=== PATIENT | female | born 1935 | race Caucasian/White ===

== ENCOUNTER 2016-05-19 18:10 | Inpatient (IN) | payer OTHER ==
[~2016-05-19] VITALS: Ht 162.6 cm; Wt 75.8 kg
[~2016-05-19 18:10] MED LIST: CALC500C3 PO; IBUP-103 PO
[2016-05-19] MEDS ORDERED: SODIUM CHLORIDE 0.9% 1000ML 1,000 ML IV STA (18:23)
[2016-05-19] MEDS ORDERED: ACETAMINOPHEN 500 MG TAB PO STA (18:23)
[2016-05-19] MEDS ORDERED: BENZONATATE 100MG CAP PO ONE (18:30)
--- NOTE | 2016-05-19 18:50 | DIAGNOSTIC IMAGING REPORT ---
SINGLE VIEW CHEST CLINICAL HISTORY: Cough and fever. Wheezing. FINDINGS: An AP, portable, upright chest radiograph is correlated with chest CT dated 12/02/2009. The examination is degraded by portable technique, apical and out of positioning, and patient rotation. A small hiatal hernia is noted. The heart is enlarged and there is atherosclerotic calcification of the thoracic aorta. The pulmonary vasculature is noncongested. Chronic interstitial thickening is unchanged. There is no airspace consolidation, pleural effusion, or pneumothorax. The skeletal structures are osteopenic. The bony thorax is grossly intact. Cholecystectomy clips are identified in the right upper quadrant. IMPRESSION: Cardiomegaly with no acute cardiopulmonary abnormality. Electronically signed by: Lonny Griffiths M.D. 05/19/2016 6:49 PM Dictated Date/Time: 05/19/2016 6:48 PM
[2016-05-19] MEDS ORDERED: CHLO1TAB47 PO (18:55)
[2016-05-19 19:16] LABS: HEMATOCRIT 38.1 % (37-47); MEAN CELL VOLUME 89.2 fL (80-100); MEAN CORPUSCULAR HEMOGLOBIN 31.9 pg (25-34); MEAN CORPUSCULAR HGB CONC 35.7 g/dl (32-36); MEAN PLATELET VOLUME 10.4 fL (7.4-10.4); PLATELET COUNT 182 K/uL (130-400); RED BLOOD COUNT 4.27 M/uL (4.2-5.4)
[2016-05-19 19:17] LABS: ISTAT CREATININE 0.8 mg/dl (0.6-1.3); ISTAT HEMOGLOBIN 12.9 g/dl (12.0-16.0); ISTAT IONIZED CALCIUM 1.11 mmol/l (1.12-1.32)
[2016-05-19 19:24] LABS: PROTHROMBIN TIME (PATIENT) 10.7 SECONDS (9.0-12.0)
[2016-05-19 19:30] LABS: URINE APPEARANCE CLOUDY (CLEAR); URINE BILIRUBIN NEG (NEG); URINE COLOR YELLOW; URINE EPITHELIAL CELL AUTO 20-30 /lpf (0-5); URINE NITRITE NEG (NEG); URINE PH 8.5 (4.5-7.5); URINE SPECIFIC GRAVITY 1.015 (1.000-1.030); UROBILINOGEN NEG (NEG); ZZUR CULT IF INDIC CLEAN CATCH NO
[2016-05-19 19:32] LABS: MANUAL MICROSCOPIC REQUIRED? NO; REVIEW REQ? YES
[2016-05-19 19:32] LABS: CALCIUM 8.8 mg/dl (8.5-10.1); CREATININE 0.83 mg/dl (0.60-1.20); MAGNESIUM 1.7 mg/dl (1.8-2.4); POTASSIUM 3.4 mmol/L (3.5-5.1)
[2016-05-19 19:44] LABS: CKMB/CK RATIO 2.3 (0-3.0)
[2016-05-19 19:45] LABS: BASO % 0.1 %; BASO ABS # 0.01 K/uL (0-0.2); COMPLETE YES; EOS % 0.1 %; IG% 0.3 %; LYMPH % 8.3 %; LYMPH ABS # 0.78 K/uL (1.2-3.4); MONO % 6.7 %; NEUT % 84.5 %
[2016-05-19] MEDS ORDERED: LEVAQUIN 750MG / 150ML D5W IV STA (19:51)
[2016-05-19] MEDS ORDERED: ASPIRIN 81 MG CHEW PO STA (19:51)
[2016-05-19] MEDS ORDERED: POTASSIUM CHLORIDE 10 MEQ TABCR PO STA (20:11)
[2016-05-19] MEDS ORDERED: ALBUT/IPRATROP 3MG/0.5MG NEB 3 ML VIAL INH STA (20:40)
[2016-05-19] MEDS ORDERED: LORAZEPAM 2 MG/ML 1 ML VIAL IV PRN (20:45)
[2016-05-19] MEDS ORDERED: MAGNESIUM SULFATE 1GM / D5W 1 GM in PREMIXED IN D5W 100 ML IV ONE ×2 (20:45→23:00)
[2016-05-19] MEDS ORDERED: TRAMADOL HCL 50 MG TAB PO PRN (20:45)
[2016-05-19] MEDS ORDERED: BENZONATATE 100MG CAP PO PRN (20:45)
[2016-05-19] MEDS ORDERED: ACETAMINOPHEN 325 MG TAB PO PRN (20:45)
[2016-05-19] MEDS ORDERED: NITROGLYCERIN 0.4 MG SL PER TAB CHARGE SL PRN (20:45)
[2016-05-19] MEDS ORDERED: ALBUT/IPRATROP 3MG/0.5MG NEB 3 ML VIAL INH PRN (20:45)
[2016-05-19] MEDS ORDERED: ONDANSETRON INJ 2 MG/ML 2 ML VIAL IV PRN (20:45)
[2016-05-19] MEDS ORDERED: ENOXAPARIN 40 MG/0.4 ML SYR SC SCH (21:00)
[2016-05-19 21:23] LABS: MAGNESIUM 1.7 mg/dl (1.8-2.4)
--- NOTE | 2016-05-19 21:23 | EMERGENCY ROOM VISIT NOTE ---
History Report prepared by Chaya: Mitali Esquivel Under the Supervision of: Dr. Valentín Crawford D.O. First contact with patient: 18:14 Chief Complaint: COUGH Stated Complaint: COUGH,FEVER,WHEEZING FOR 5 DAYS History of Present Illness The patient is a 80 year old female who presents to the Emergency Room with complaints of a constant cough beginning 2 week ago. The patient's son reports that the patient has an appointment with her doctor on Saturday but today when he went to visit he decided that she needed to come in. The patient complains of pain across her eyes, congestion, runny nose, shortness of breath, fever of 103 today, abdominal pain from coughing, and a productive cough with yellow phlegm. She denies any nausea, vomiting, and urinary symptoms. The patient reports that there are several people in her family that are sick with the same thing. Source of History: patient, family Onset: 2 weeks ago Position: other (global) Quality: other (cough) Timing: constant Associated Symptoms: + SOB, + abdominal pain, + fevers, No nausea, No urinary symptoms, No vomiting Note: The patient complains of pain across her eyes, congestion, runny nose. Review of Systems See HPI for pertinent positives & negatives. A total of 10 systems reviewed and were otherwise negative. Past Medical & Surgical Medical Problems: (1) Elevated troponin (2) Sepsis Surgical Problems: (1) S/P cholecystectomy Family History Cancer Social History Smoking Status: Never Smoker Alcohol Use: none Marital Status: Housing Status: lives alone Occupation Status: retired Current/Historical Medications Scheduled Chlorpheniramine-Phenylephrine (Rash[place] Plus Cold), 1 TAB PO PRN UD Scheduled PRN Ibuprofen Tab (Advil), 200 MG PO prn ud PRN for Pain Allergies Coded Allergies: Cefuroxime (Verified Allergy, Unknown, rash, 12/05/14) Amoxicillin (Verified Adverse Reaction, Unknown, nausea, 12/05/14) Physical Exam Vital Signs Date Time Temp Pulse Resp B/P Pulse Ox O2 Delivery O2 Flow Rate FiO2 05/19/16 21:06 72 18 137/74 99 05/19/16 19:52 37.2 74 18 126/66 93 Room Air 05/19/16 19:11 83 18 149/70 95 Room Air 05/19/16 19:11 95 Room Air 05/19/16 19:01 83 05/19/16 18:11 38.1 100 22 166/87 93 Room Air Physical Exam GENERAL: disheveled, no distress, non-toxic, nonproductive cough EYE EXAM: normal conjunctiva OROPHARYNX: no exudate, no erythema, lips, buccal mucosa, and tongue normal and mucous membranes are moist NECK: supple, no nuchal rigidity, no adenopathy, non-tender LUNGS: Clear to auscultation. Normal chest wall mechanics HEART: no murmurs, S1 normal and S2 normal ABDOMEN: abdomen soft, non-tender, normo-active bowel sounds, no masses, no rebound or guarding. BACK: Back is symmetrical on inspection and there is no deformity, no midline tenderness, no CVA tenderness. SKIN: no rashes and no bruising UPPER EXTREMITIES: upper extremities are grossly normal. LOWER EXTREMITIES: No pitting edema. NEURO EXAM: Normal sensorium, cranial nerves II-XII grossly intact, normal speech, no gross weakness of arms, no gross weakness of legs. Medical Decision & Procedures ER Provider Diagnostic Interpretation: Xray results per the radiologist and my interpretation. SINGLE VIEW CHEST FINDINGS: An AP, portable, upright chest radiograph is correlated with chest CT dated 12/02/2009. The examination is degraded by portable technique, apical and out of positioning, and patient rotation. A small hiatal hernia is noted. The heart is enlarged and there is atherosclerotic calcification of the thoracic aorta. The pulmonary vasculature is noncongested. Chronic interstitial thickening is unchanged. There is no airspace consolidation, pleural effusion, or pneumothorax. The skeletal structures are osteopenic. The bony thorax is grossly intact. Cholecystectomy clips are identified in the right upper quadrant. IMPRESSION: Cardiomegaly with no acute cardiopulmonary abnormality. Electronically signed by: Lonny Griffiths M.D. 05/19/2016 6:49 PM Dictated Date/Time: 05/19/2016 6:48 PM Laboratory Results 05/19/16 19:00 Red Blood Count 4.27, Mean Corpuscular Volume 89.2, Mean Corpuscular Hemoglobin 31.9, Mean Corpuscular Hemoglobin Concent 35.7, Mean Platelet Volume 10.4, Neutrophils (%) (Auto) 84.5, Lymphocytes (%) (Auto) 8.3, Monocytes (%) (Auto) 6.7, Eosinophils (%) (Auto) 0.1, Basophils (%) (Auto) 0.1, Neutrophils # (Auto) 7.94, Lymphocytes # (Auto) 0.78, Monocytes # (Auto) 0.63, Eosinophils # (Auto) 0.01, Basophils # (Auto) 0.01 05/19/16 19:00 Test 05/19/16 18:29 05/19/16 18:58 05/19/16 19:00 05/19/16 19:02 Influenza Type A Antigen Neg for Influ A (NEG) Influenza Type B Antigen Neg for Influ B (NEG) Bedside Lactic Acid Venous 1.22 mmol/L (0.90-1.70) White Blood Count 9.40 K/uL (4.8-10.8) Red Blood Count 4.27 M/uL (4.2-5.4) Hemoglobin 13.6 g/dL (12.0-16.0) Hematocrit 38.1 % (37-47) Mean Corpuscular Volume 89.2 fL (80-100) Mean Corpuscular Hemoglobin 31.9 pg (25-34) Mean Corpuscular Hemoglobin Concent 35.7 g/dl (32-36) Platelet Count 182 K/uL (130-400) Mean Platelet Volume 10.4 fL (7.4-10.4) Neutrophils (%) (Auto) 84.5 % Lymphocytes (%) (Auto) 8.3 % Monocytes (%) (Auto) 6.7 % Eosinophils (%) (Auto) 0.1 % Basophils (%) (Auto) 0.1 % Neutrophils # (Auto) 7.94 K/uL (1.4-6.5) Lymphocytes # (Auto) 0.78 K/uL (1.2-3.4) Monocytes # (Auto) 0.63 K/uL (0.11-0.59) Eosinophils # (Auto) 0.01 K/uL (0-0.5) Basophils # (Auto) 0.01 K/uL (0-0.2) RDW Standard Deviation 43.4 fL (36.4-46.3) RDW Coefficient of Variation 13.3 % (11.5-14.5) Immature Granulocyte % (Auto) 0.3 % Immature Granulocyte # (Auto) 0.03 K/uL (0.00-0.02) Prothrombin Time 10.7 SECONDS (9.0-12.0) Prothromb Time International Ratio 1.0 (0.9-1.1) Est Creatinine Clear Calc Drug Dose 53.8 ml/min Estimated GFR () 77.7 Estimated GFR (Non- 67.1 BUN/Creatinine Ratio 16.0 (10-20) Calcium Level 8.8 mg/dl (8.5-10.1) Total Bilirubin 0.5 mg/dl (0.2-1) Direct Bilirubin 0.1 mg/dl (0-0.2) Aspartate Amino Transf (AST/SGOT) 28 U/L (15-37) Alanine Aminotransferase (ALT/SGPT) 24 U/L (12-78) Alkaline Phosphatase 101 U/L (45-117) Total Creatine Kinase 30 U/L (26-192) Creatine Kinase MB 0.7 ng/ml (0.5-3.6) Creatine Kinase MB Ratio 2.3 (0-3.0) Pro-B-Type Natriuretic Peptide 871 pg/ml (0-1800) Total Protein 7.3 gm/dl (6.4-8.2) Albumin 3.5 gm/dl (3.4-5.0) Bedside Hemoglobin 12.9 g/dl (12.0-16.0) Bedside Hematocrit 38 % (37-47) Bedside Sodium 136 mEq/L (135-144) Bedside Potassium 3.4 mEq/L (3.3-5.0) Bedside Chloride 100 mEq/L (101-112) Bedside Total CO2 21 mEq/l (24-31) Anion Gap 20.0 mmol/L (16-25) Bedside Blood Urea Nitrogen 13 mg/dl (7-18) Bedside Creatinine 0.8 mg/dl (0.6-1.3) Bedside Glucose (other) 133 mg/dl (70-99) Bedside Ionized Calcium (Jose) 1.11 mmol/l (1.12-1.32) Test 05/19/16 19:07 05/19/16 20:37 Urine Color YELLOW Urine Appearance CLOUDY (CLEAR) Urine pH 8.5 (4.5-7.5) Urine Specific [place] 1.015 (1.000-1.030) Urine Protein NEG (NEG) Urine Glucose (UA) NEG (NEG) Urine Ketones 1+ (NEG) Urine Occult Blood NEG (NEG) Urine Nitrite NEG (NEG) Urine Bilirubin NEG (NEG) Urine Urobilinogen NEG (NEG) Urine Leukocyte Esterase SMALL (NEG) Urine WBC (Auto) 5-10 /hpf (0-5) Urine RBC (Auto) 0-4 /hpf (0-4) Urine Hyaline Casts (Auto) 1-5 /lpf (0-5) Urine Epithelial Cells (Auto) 20-30 /lpf (0-5) Urine Bacteria (Auto) NEG (NEG) Laboratory results per my review. Medications Administered Medications (Trade) Dose Ordered Sig/Todd Route Start Time Stop Time Status Last Admin Dose Admin Sodium Chloride (Nss 1000ml) 1,000 ml @ 999 mls/hr Q1H1M STAT IV 05/19/16 18:23 05/19/16 19:23 DC 05/19/16 19:15 999 MLS/HR Acetaminophen (Tylenol Tab) 1,000 mg NOW STAT PO 05/19/16 18:23 05/19/16 18:24 DC 05/19/16 18:36 1,000 MG Benzonatate (Tessalon Perles Cap) 100 mg NOW ONCE PO 05/19/16 18:30 05/19/16 18:31 DC 05/19/16 18:36 100 MG Levofloxacin (Levaquin / D5W) 750 mg NOW STAT IV 05/19/16 19:51 05/19/16 19:53 DC 05/19/16 20:08 750 MG Aspirin (Aspirin Chew) 324 mg NOW STAT PO 05/19/16 19:51 05/19/16 19:53 DC 05/19/16 20:07 324 MG Potassium Chloride (Klor-Con M10) 20 meq NOW STAT PO 05/19/16 20:11 05/19/16 20:20 DC 05/19/16 20:46 20 MEQ Albuterol/ Ipratropium (Duoneb) 3 ml NOW STAT INH 05/19/16 20:40 05/19/16 20:41 DC 05/19/16 20:46 3 ML ECG Indication: SOB/dyspnea Rate (beats per minute): 87 Rhythm: sinus rhythm Findings: ST depression (Anterior), other (normal axis) Comparison ECG Date: 12-05-14 Change: T wave depressions are new. ED Course ED COURSE: Vital signs were reviewed and the patient was febrile and tachycardic The patients medical record was reviewed The above diagnostic studies were performed and reviewed. ED treatments and interventions as stated above. 1813: The patient was evaluated in room B3. A complete history and physical examination was performed. 1822: Tylenol Tab 1000mg PO, Sodium Chloride 1000 ml @ 999 mls/hr IV. 1829: Benzonatate 100mg PO. 1950: Aspirin 324mg PO, Levofloxacin 750mg IV. 1954: I reviewed the patient's case with Dr. Jon. He will evaluate the patient for further management. 2005: Upon reevaluation, the patient is hemodynamically stable.I discussed my findings with the patient and she understands and agrees with the treatment plan. Based on the patients age, coexisting illnesses, exam and lab findings the decision to treat as an inpatient was made. The patient remained stable while under my care. The patient will be evaluated for further management. Medical Decision Differential diagnosis includes etiologies such as sepsis, UTI, pneumonia, metabolic, electrolyte abnormalities, cardiac sources, intracerebral event, toxicologic, neurologic, as well as others were entertained. Patient is a 80-year-old female who presents the ER for diffuse weakness associated with cough and fever. She has of this has been present for the past several days. She's become weaker. Labs show no significant leukocytosis. BMP along with LFTs, bilirubin or unremarkable. Troponin was positive at 0.095. Influenza A and B were negative. UA was contaminated with epithelial cells. Chest x-ray shows no focal infiltrate. She is no chest pain. Based on her symptoms I feel this most consistent with a bronchitis versus influenza. I did cover her with antibiotics and she is given aspirin. EKG was nondiagnostic. I do not believe that this is acute coronary syndrome but rather likely demand ischemia. Patient was given a bolus normal saline and Tessalon Perles. She was admitted to internal medicine for further workup. Consults Time Called: 1949 Consulting Physician: Dr. Jon Returned Call: 1954 I reviewed the patient's case with Dr. Jon. He will evaluate the patient for further management. Impression Primary Impression: Bronchitis Additional Impression: Elevated troponin Scribe Attestation The scribe's documentation has been prepared under my direction and personally reviewed by me in its entirety. I confirm that the note above accurately reflects all work, treatment, procedures, and medical decision making performed by me. Departure Information Dispostion Being Evaluated By Hospitalist Referrals Amor Carroll M.D. (PCP) Patient Instructions [facility] Problem Qualifiers
[2016-05-19 21:31] VITALS: BP 137/64; PULSE 89; TEMP 37; O2SAT 96; Ht 162.6 cm; Wt 75.8 kg
--- NOTE | 2016-05-19 21:31 | HISTORY & PHYSICAL EXAMINATION ---
DATE OF ADMISSION: 05/19/2016 PRIMARY CARE PHYSICIAN: Dr. Carroll CHIEF COMPLAINT: Cough and shortness of breath HISTORY OF PRESENT ILLNESS: Mhx significant for choledocholithiasis. Recent confinement in 2009 for choledocholithiasis under Surgery service. Patient underwent a cholecystectomy. A few days history of cough symptoms; started with a nasal congestion, sick contacts. No chest pain. Cough productive of yellow sputum, fever, chills and poor appetite. Denies aspiration. Denies fluid retention. Patient was noted to be wheezing at home. At the Emergency Room, the patient received Levaquin for possible sepsis. MEDICAL HISTORY: As above. SURGERIES: Gynecologic procedures, cholecystectomy. HOME MEDICATIONS: Ibuprofen p.r.n. FAMILY HISTORY: Diabetes. PERSONAL AND SOCIAL HISTORY: Nonsmoker. No chronic intake of alcoholic beverages. Homemaker. REVIEW OF SYSTEMS: As per HPI, all other ROS negative. PHYSICAL EXAMINATION: VITAL SIGNS: Blood pressure was noted to be 160/70 later 120/70_ pulse rate 100, RR 20, temperature 38.9 sats 93 on room air. GENERAL: Noted to be slightly uncomfortable, looks younger for stated age, hard of hearing. SKIN: Normal color. HEENT: [place] palpebral conjunctivae. Dry mucosa. NECK: Supple CHEST: Decreased effort. no wheeze HEART: Regular rate and rhythm. ABDOMEN: Some distention, nontender. EXTREMITIES: No edema. no tenderness NEUROLOGIC: No gross focality except for mild hearing impairment. LABORATORIES: Hemoglobin was noted to be 13.6, WBC 7 platelets 182. Sodium was noted to be 137, potassium 3.4, chloride 102, BUN 30, creatinine 0.8, glucose 125. Mag was 1.7. Troponin was 0.09. BNP normal Chest x-ray showed cardiomegaly and chronic interstitial thickening. EKG rate 85, NSR, NSSTW abn ASSESSMENT: 1. Sepsis secondary to complicated bronchitis/atypical pneumonia 2. troponin bump possibly from transient blood pressure elevation, sepsis No previous diagnosis of hypertension. Possible chronic hypertension with cardiomegaly on the x-ray. 3. Hypokalemia secondary to illness. PLAN: PCU, mainly for troponinemia CS, Azithromycin for now. Flu PCR. Follow cardiac markers. TTE RE troponinemia. Replace potassium. PT/OT eval. DVT prophylaxis, Lovenox subQ. Full code. MTDD
[2016-05-19] MEDS ORDERED: NSS + 20MEQ KCL 1000ML 1,000 ML IV ONE (23:00)
[2016-05-19] MEDS: ENOXAPARIN 30 MG/0.3 ML SYR SC SCH (23:17)
[2016-05-19 23:18] VITALS: BP 117/62; PULSE 75; TEMP 37.1; O2SAT 96
[2016-05-19 23:59] VITALS: O2SAT 96
[2016-05-20] VITALS (9 sets, daily range): BP systolic 110–136; BP diastolic 59–73; PULSE 59–77; TEMP 36.5–36.9; O2SAT 95–99
[2016-05-20 06:41] LABS: HEMATOCRIT 33.7 % (37-47); MEAN CELL VOLUME 90.1 fL (80-100); MEAN CORPUSCULAR HEMOGLOBIN 31.3 pg (25-34); MEAN CORPUSCULAR HGB CONC 34.7 g/dl (32-36); MEAN PLATELET VOLUME 10.4 fL (7.4-10.4); PLATELET COUNT 172 K/uL (130-400); RED BLOOD COUNT 3.74 M/uL (4.2-5.4); WHITE BLOOD COUNT 8.51 K/uL (4.8-10.8)
[2016-05-20 07:15] LABS: CALCIUM 8.3 mg/dl (8.5-10.1); COMPLETE YES; CREATININE 0.88 mg/dl (0.60-1.20); LYMPH ABS # 0.82 K/uL (1.2-3.4); LYMPHOCYTE % 9.6 %; MAGNESIUM 2.4 mg/dl (1.8-2.4); NEUTROPHILS % 77.2 %; POTASSIUM 3.6 mmol/L (3.5-5.1); VARIANT LYM ABS # 0.97 K/uL; VARIANT LYMPHOCYTE % 11.4 %
[2016-05-20] MEDS ORDERED: AZITHROMYCIN 250 MG TAB PO ONE (09:00)
--- NOTE | 2016-05-20 09:35 | ECHOCARDIOGRAM REPORT ---
*NOTICE TO RECEIVING LIBERTARIAN AGENCY This information is strictly Confidential and protected under [place] law. [place] law prohibits you from making any further disclosure of this information unless further disclosure is expressly permitted by the written consent of the person to whom it pertains or is authorized by law. A general authorization for the release of medical or other information is not sufficient for this purpose. Hospital accepts no responsibility if the information is made available to any other person, INCLUDING THE PATIENT. Interpretation Summary * Name: JOSE CRUZ CUTLER Study Date: 05/20/2016 08:06 AM BP: 110/60 mmHg * Patient Location: C.2E\S\E212\S\1 HR: 64 * : 1935 (M/d/yyy) Gender: Female Height: 63.5 in * Age: 80 yrs Ethnicity: CA Weight: 164 lb * Ordering Physician: Pradip Jon * Performed By: Minna Basilio * * Reason For Study: TROPONIN BUMP * BSA: 1.8 m2 * -- Conclusions -- * The left ventricle is normal in size. * There is moderate concentric left ventricular hypertrophy. * Left ventricular systolic function is normal. * The left ventricular wall motion is normal. * Ejection Fraction = 65-70%. * Aortic valve sclerosis mild, without significant aortic valvular stenosis. * There is moderate mitral regurgitation. * There is mild to moderate tricuspid regurgitation. * Doppler findings do not suggest pulmonary hypertension. Procedure Details * A complete two-dimensional transthoracic echocardiogram was performed (2D, M-mode, Doppler and color flow Doppler). Left Ventricle * The left ventricle is normal in size. * There is moderate concentric left ventricular hypertrophy. * Left ventricular systolic function is normal. * Ejection Fraction = 65-70%. * The left ventricular wall motion is normal. Right Ventricle * The right ventricle is normal in size and function. Atria * The left atrium is mildly dilated. * Right atrial size is normal. * No ASD detected; PFO is not assessed. Mitral Valve * The mitral valve anatomy is normal. * There is no mitral valve stenosis. * There is moderate mitral regurgitation. Tricuspid Valve * The tricuspid valve anatomy is normal. * There is no tricuspid stenosis. * There is mild to moderate tricuspid regurgitation. * Doppler findings do not suggest pulmonary hypertension. Aortic Valve * The aortic valve is trileaflet. * Aortic valve sclerosis mild, without significant aortic valvular stenosis. * No aortic regurgitation is present. Pulmonic Valve * The pulmonic valve is not well visualized. Great Vessels * The aortic root is normal size. Pericardium/Pleural * There is no pericardial effusion. Great Vessels * The inferior vena cava is mildly dilated. Left Ventricular Diastolic Function * Diastolic dysfunction, Grade II, consistent with elevated left atrial pressure. MMode 2D Measurements and Calculations IVSd 1.4 cm IVSs 2.1 cm LVIDd 4.5 cm LVIDs 2.6 cm LVPWd 1.2 cm LVPWs 2.3 cm IVS/LVPW 1.2 FS 42.2 % EDV(Teich) 94.0 ml ESV(Teich) 25.0 ml EF(Teich) 73.4 % EDV(cubed) 93.1 ml ESV(cubed) 18.0 ml EF(cubed) 80.7 % % IVS thick 47.9 % % LVPW thick 99.4 % LV mass(C)d 222.2 grams LV mass(C)dI 124.3 grams/m\S\2 LV mass(C)s 274.9 grams LV mass(C)sI 153.8 grams/m\S\2 SV(Teich) 69.0 ml SI(Teich) 38.6 ml/m\S\2 SV(cubed) 75.2 ml SI(cubed) 42.0 ml/m\S\2 ACS 1.2 cm LA dimension 3.8 cm asc Aorta Diam 3.1 cm LVOT diam 2.0 cm LVOT area 3.1 cm\S\2 LVAd ap4 21.9 cm\S\2 LVLd ap4 5.8 cm EDV(MOD-sp4) 67.5 ml EDV(sp4-el) 70.4 ml LVAs ap4 8.8 cm\S\2 LVLs ap4 3.9 cm ESV(MOD-sp4) 17.7 ml ESV(sp4-el) 16.5 ml EF(MOD-sp4) 73.8 % EF(sp4-el) 76.6 % LVAd ap2 20.8 cm\S\2 LVLd ap2 6.2 cm EDV(MOD-sp2) 58.6 ml EDV(sp2-el) 59.8 ml LVAs ap2 9.3 cm\S\2 LVLs ap2 4.7 cm ESV(MOD-sp2) 16.0 ml ESV(sp2-el) 15.5 ml EF(MOD-sp2) 72.7 % EF(sp2-el) 74.1 % LVLd %diff 6.1 % EDV(MOD-bp) 64.4 ml LVLs %diff 16.2 % ESV(MOD-bp) 18.1 ml EF(MOD-bp) 71.9 % SV(MOD-sp4) 49.8 ml SI(MOD-sp4) 27.9 ml/m\S\2 SV(MOD-sp2) 42.6 ml SI(MOD-sp2) 23.8 ml/m\S\2 SV(MOD-bp) 46.3 ml SI(MOD-bp) 25.9 ml/m\S\2 SV(sp4-el) 53.9 ml SI(sp4-el) 30.1 ml/m\S\2 SV(sp2-el) 44.4 ml SI(sp2-el) 24.8 ml/m\S\2 Doppler Measurements and Calculations MV E max jayde 76.0 cm/sec MV A max jadye 64.2 cm/sec MV E/A 1.2 MV V2 max 72.9 cm/sec MV max PG 2.1 mmHg MV V2 mean 40.1 cm/sec MV mean PG 0.79 mmHg MV V2 VTI 29.9 cm MVA(VTI) 2.7 cm\S\2 MV dec time 0.31 sec Ao V2 max 139.8 cm/sec Ao max PG 7.8 mmHg Ao max PG (full) 5.2 mmHg JULIETA(V,A) 1.8 cm\S\2 JULIETA(V,D) 1.8 cm\S\2 LV V1 max PG 2.6 mmHg LV V1 mean PG 1.0 mmHg LV V1 max 80.6 cm/sec LV V1 mean 45.5 cm/sec LV V1 VTI 25.3 cm MR max jayde 511.8 cm/sec MR max PG 104.9 mmHg SV(LVOT) 79.5 ml SI(LVOT) 44.5 ml/m\S\2 PA V2 max 53.1 cm/sec PA max PG 1.1 mmHg PI end-d jayde 112.3 cm/sec TR max jayde 253.4 cm/sec
[2016-05-20 10:03] LABS: INFLUENZA A PCR Neg for Influ A (NEG); INFLUENZA B PCR Neg for Influ B (NEG)
--- NOTE | 2016-05-20 11:38 | Progress Note ---
Medicine Progress Note Date & Time of Visit: May 20, 2016 at 11:35. Subjective patient seen resting in bed comfortably states she feels improved compared to yesterday sinus congestion, cough, breathing continues to improve denies chest pain, dyspnea, palpitations, dizziness no nausea/vomiting denies other symptoms Objective Last 8 Hrs Date Time Temp Pulse Resp B/P Pulse Ox O2 Delivery O2 Flow Rate FiO2 05/20/16 08:00 Room Air 05/20/16 07:56 36.5 66 20 118/59 99 Room Air 05/20/16 04:24 36.7 64 18 110/60 96 Room Air 05/20/16 04:00 96 Room Air Physical Exam: General- oriented x 3, not in distress, speaks in sentences with no effort Eyes- anicteric ENT- oropharynx clear Neck- supple, no JVD Lungs- mild rhonchi b/l upper lobes Heart- regular rhythm; no murmur, normal rate Abdomen- normal bowel sounds, soft, nontender, Extremities- no pretibial edema, no calf tenderness Neuro- alert, oriented x 3; PERRL, EOMI; no facial palsy; no dysarthria; motor 5 /5 bilaterally; no cogwheel rigidity; patellar DTRs +2/2; toes downgoing bilaterally; finger to nose intact bilaterally Skin- warm & dry Laboratory Results: Last 24 Hours Test 05/19/16 18:29 05/19/16 18:58 05/19/16 19:00 05/19/16 19:02 Influenza Type A Antigen Neg for Influ A Influenza Type B Antigen Neg for Influ B Bedside Lactic Acid Venous 1.22 mmol/L White Blood Count 9.40 K/uL Red Blood Count 4.27 M/uL Hemoglobin 13.6 g/dL Hematocrit 38.1 % Mean Corpuscular Volume 89.2 fL Mean Corpuscular Hemoglobin 31.9 pg Mean Corpuscular Hemoglobin Concent 35.7 g/dl Platelet Count 182 K/uL Mean Platelet Volume 10.4 fL Neutrophils (%) (Auto) 84.5 % Lymphocytes (%) (Auto) 8.3 % Monocytes (%) (Auto) 6.7 % Eosinophils (%) (Auto) 0.1 % Basophils (%) (Auto) 0.1 % Neutrophils # (Auto) 7.94 K/uL Lymphocytes # (Auto) 0.78 K/uL Monocytes # (Auto) 0.63 K/uL Eosinophils # (Auto) 0.01 K/uL Basophils # (Auto) 0.01 K/uL RDW Standard Deviation 43.4 fL RDW Coefficient of Variation 13.3 % Immature Granulocyte % (Auto) 0.3 % Immature Granulocyte # (Auto) 0.03 K/uL Prothrombin Time 10.7 SECONDS Prothromb Time International Ratio 1.0 Sodium Level 137 mmol/L Potassium Level 3.4 mmol/L Chloride Level 102 mmol/L Carbon Dioxide Level 22 mmol/L Anion Gap 13.0 mmol/L 20.0 mmol/L Blood Urea Nitrogen 13 mg/dl Creatinine 0.83 mg/dl Est Creatinine Clear Calc Drug Dose 53.8 ml/min Estimated GFR () 77.7 Estimated GFR (Non- 67.1 BUN/Creatinine Ratio 16.0 Random Glucose 125 mg/dl Calcium Level 8.8 mg/dl Magnesium Level 1.7 mg/dl Total Bilirubin 0.5 mg/dl Direct Bilirubin 0.1 mg/dl Aspartate Amino Transf (AST/SGOT) 28 U/L Alanine Aminotransferase (ALT/SGPT) 24 U/L Alkaline Phosphatase 101 U/L Total Creatine Kinase 30 U/L Creatine Kinase MB 0.7 ng/ml Creatine Kinase MB Ratio 2.3 Troponin I 0.095 ng/ml Pro-B-Type Natriuretic Peptide 871 pg/ml Total Protein 7.3 gm/dl Albumin 3.5 gm/dl Bedside Hemoglobin 12.9 g/dl Bedside Hematocrit 38 % Bedside Sodium 136 mEq/L Bedside Potassium 3.4 mEq/L Bedside Chloride 100 mEq/L Bedside Total CO2 21 mEq/l Bedside Blood Urea Nitrogen 13 mg/dl Bedside Creatinine 0.8 mg/dl Bedside Glucose (other) 133 mg/dl Bedside Ionized Calcium (Jose) 1.11 mmol/l Test 05/19/16 19:07 05/19/16 20:37 05/20/16 06:15 05/20/16 06:20 Urine Color YELLOW Urine Appearance CLOUDY Urine pH 8.5 Urine Specific [place] 1.015 Urine Protein NEG Urine Glucose (UA) NEG Urine Ketones 1+ Urine Occult Blood NEG Urine Nitrite NEG Urine Bilirubin NEG Urine Urobilinogen NEG Urine Leukocyte Esterase SMALL Urine WBC (Auto) 5-10 /hpf Urine RBC (Auto) 0-4 /hpf Urine Hyaline Casts (Auto) 1-5 /lpf Urine Epithelial Cells (Auto) 20-30 /lpf Urine Bacteria (Auto) NEG Magnesium Level 1.7 mg/dl 2.4 mg/dl Troponin I 0.088 ng/ml 0.083 ng/ml White Blood Count 8.51 K/uL Red Blood Count 3.74 M/uL Hemoglobin 11.7 g/dL Hematocrit 33.7 % Mean Corpuscular Volume 90.1 fL Mean Corpuscular Hemoglobin 31.3 pg Mean Corpuscular Hemoglobin Concent 34.7 g/dl Platelet Count 172 K/uL Mean Platelet Volume 10.4 fL RDW Standard Deviation 44.0 fL RDW Coefficient of Variation 13.4 % Neutrophils % (Manual) 77.2 % Lymphocytes % (Manual) 9.6 % Variant Lymphocytes % (manual) 11.4 % Monocytes % (Manual) 1.8 % Neutrophils # (Manual) 6.57 K/uL Total Absolute Neutrophils 6.57 K/uL Lymphocytes # (Manual) 0.82 K/uL Absolute Variant Lymphocytes 0.97 K/uL Total Absolute Lymphocytes 1.79 K/uL Monocytes # (Manual) 0.15 K/uL Red Blood Cell Morphology Unremarkable Sodium Level 140 mmol/L Potassium Level 3.6 mmol/L Chloride Level 106 mmol/L Carbon Dioxide Level 24 mmol/L Anion Gap 10.0 mmol/L Blood Urea Nitrogen 12 mg/dl Creatinine 0.88 mg/dl Est Creatinine Clear Calc Drug Dose 51.7 ml/min Estimated GFR () 72.4 Estimated GFR (Non- 62.5 BUN/Creatinine Ratio 14.0 Random Glucose 86 mg/dl Calcium Level 8.3 mg/dl Influenza Type A (RT-PCR) Neg for Influ A Influenza Type B (RT-PCR) Neg for Influ B Date/Time Source Procedure Growth Status 05/19/16 19:17 Blood Blood Culture Pending Received 05/19/16 19:00 Blood Blood Culture Pending Received Assessment & Plan ASSESSMENT: 1. Sepsis secondary to complicated bronchitis/atypical pneumonia -- CXR: no pneumonia negative for Flu -- now afebrile clinically improving -- continue Azithromycin add Nebs 2. Mild Troponin elevation - remain around 0.08 - EKG: no signs of acute ischemia - echo: normal wall motion 3. Hypokalemia - resolved Disposition possible d/c in AM Current Inpatient Medications: Current Inpatient Medications Medications (Trade) Dose Ordered Sig/Todd Route Start Time Stop Time Status Last Admin Dose Admin Azithromycin (Zithromax Tab) 250 mg DAILY PO 05/21/16 09:00 05/25/16 08:59 Albuterol/ Ipratropium (Duoneb) 3 ml Q2H PRN INH 05/19/16 20:45 06/18/16 20:44 Benzonatate (Tessalon Perles Cap) 100 mg Q8H PRN PO 05/19/16 20:45 06/18/16 20:44 Lorazepam (Ativan Inj) 0.5 mg Q4H PRN IV 05/19/16 20:45 06/18/16 20:44 Tramadol HCl (Ultram Tab) 25 mg Q6H PRN PO 05/19/16 20:45 06/18/16 20:44 Ondansetron HCl (Zofran Inj) 4 mg Q6H PRN IV 05/19/16 20:45 06/18/16 20:44 Acetaminophen (Tylenol Tab) 650 mg Q4H PRN PO 05/19/16 20:45 06/18/16 20:44 Nitroglycerin (Nitrostat Tab) 0.4 mg UD PRN SL 05/19/16 20:45 06/18/16 20:44 Enoxaparin Sodium 30 mg 30 mg Q24H SC 05/19/16 21:00 06/18/16 20:59 05/19/16 23:17 30 MG Potassium Chloride/Sodium Chloride (Nss + 20meq KCl 1000ml) 1,000 ml @ 75 mls/hr [id number] ONCE IV 05/19/16 23:00 05/20/16 12:19 05/19/16 23:15 75 MLS/HR
[2016-05-20] MEDS ORDERED: IPRATROPIUM BROMIDE NEB SOLN 0.02% 2.5 ML VIAL INH SCH (12:00)
[2016-05-20] MEDS ORDERED: LEVALBUTEROL 1.25MG/0.5ML NEB INH SCH (12:00)
[2016-05-20] MEDS: IPRATROPIUM BROMIDE NEB SOLN 0.02% 2.5 ML VIAL INH SCH ×2 (14:18→19:10)
[2016-05-20] MEDS: LEVALBUTEROL 1.25MG/0.5ML NEB INH SCH ×2 (14:18→19:10)
[2016-05-20] MEDS ORDERED: LEVALBUTEROL/IPRATROPIUM NEB INH SCH (15:00)
[2016-05-20] MEDS: ENOXAPARIN 30 MG/0.3 ML SYR SC SCH (21:24)
[2016-05-21 00:39] VITALS: BP 145/83; PULSE 72; TEMP 36.9; O2SAT 95
[2016-05-21] MEDS: LEVALBUTEROL 1.25MG/0.5ML NEB INH SCH (07:04)
[2016-05-21] MEDS: IPRATROPIUM BROMIDE NEB SOLN 0.02% 2.5 ML VIAL INH SCH (07:04)
[2016-05-21 07:06] VITALS: PULSE 71; O2SAT 96
[2016-05-21 07:49] LABS: BUN/CREATININE RATIO 14.2 (10-20); CALCIUM 8.9 mg/dl (8.5-10.1); CREATININE 0.73 mg/dl (0.60-1.20); POTASSIUM 4.3 mmol/L (3.5-5.1)
[2016-05-21 07:55] VITALS: BP 144/80; PULSE 82; TEMP 36.4; O2SAT 98
[2016-05-21] MEDS ORDERED: AZITHROMYCIN 250 MG TAB PO SCH (09:00)
[2016-05-21 09:23] VITALS: O2SAT 98
[2016-05-21 10:22] VITALS: BP 144/80; PULSE 82; TEMP 36.4; O2SAT 98
--- NOTE | 2016-05-21 10:46 | Progress Note ---
Medicine Progress Note Date & Time of Visit: May 21, 2016 at 10:36. Subjective patient seen resting in bed reading a book states she feels much improved cough and sputum has decreased denies other symptoms states she is ready and would like to be discharged today Objective Last 8 Hrs Date Time Temp Pulse Resp B/P Pulse Ox O2 Delivery O2 Flow Rate FiO2 05/21/16 10:22 36.4 82 17 98 Room Air 05/21/16 09:23 98 Room Air 05/21/16 08:00 Room Air 05/21/16 07:55 36.4 82 17 144/80 98 Room Air 05/21/16 07:06 71 18 96 Room Air Physical Exam: General- oriented x 3, not in distress, speaks in sentences with no effort Neck- no JVD Lungs- clear breath sounds bilaterally Heart- normal rate, regular rhythm; no murmurs Abdomen- normal bowel sounds, soft, nontender, Extremities- no pretibial edema, no calf tenderness Neuro- alert, oriented x 3; no gross deficits Skin- warm & dry Laboratory Results: Last 24 Hours Test 05/21/16 06:42 Sodium Level 143 mmol/L Potassium Level 4.3 mmol/L Chloride Level 109 mmol/L Carbon Dioxide Level 25 mmol/L Anion Gap 9.0 mmol/L Blood Urea Nitrogen 10 mg/dl Creatinine 0.73 mg/dl Est Creatinine Clear Calc Drug Dose 62.3 ml/min Estimated GFR () 90.8 Estimated GFR (Non- 78.3 BUN/Creatinine Ratio 14.2 Random Glucose 86 mg/dl Calcium Level 8.9 mg/dl Assessment & Plan 1. Possible epsis secondary to complicated bronchitis/atypical pneumonia -- CXR: no pneumonia negative for Flu -- remained afebrile since admission clinically improving -- recived 2 days of Azithromycin continue Azithromycin 250mg daily x 3 days Mucinex Tessalon Pearls PRN 2. Mild Troponin elevation - remain around 0.08 CKMB and CK normal - EKG: no signs of acute ischemia - echo: normal wall motion -- Conclusions -- * The left ventricle is normal in size. * There is moderate concentric left ventricular hypertrophy. * Left ventricular systolic function is normal. * The left ventricular wall motion is normal. * Ejection Fraction = 65-70%. * Aortic valve sclerosis mild, without significant aortic valvular stenosis. * There is moderate mitral regurgitation. * There is mild to moderate tricuspid regurgitation. * Doppler findings do not suggest pulmonary hypertension. 3. Hypokalemia - resolved Disposition d/c home today ff up with PCP in 1 week Current Inpatient Medications: Current Inpatient Medications Medications (Trade) Dose Ordered Sig/Todd Route Start Time Stop Time Status Last Admin Dose Admin Azithromycin (Zithromax Tab) 250 mg DAILY PO 05/21/16 09:00 05/25/16 08:59 05/21/16 08:47 250 MG Albuterol/ Ipratropium (Duoneb) 3 ml Q2H PRN INH 05/19/16 20:45 06/18/16 20:44 Benzonatate (Tessalon Perles Cap) 100 mg Q8H PRN PO 05/19/16 20:45 06/18/16 20:44 Lorazepam (Ativan Inj) 0.5 mg Q4H PRN IV 05/19/16 20:45 06/18/16 20:44 Tramadol HCl (Ultram Tab) 25 mg Q6H PRN PO 05/19/16 20:45 06/18/16 20:44 Ondansetron HCl (Zofran Inj) 4 mg Q6H PRN IV 05/19/16 20:45 06/18/16 20:44 Acetaminophen (Tylenol Tab) 650 mg Q4H PRN PO 05/19/16 20:45 06/18/16 20:44 Nitroglycerin (Nitrostat Tab) 0.4 mg UD PRN SL 05/19/16 20:45 06/18/16 20:44 Enoxaparin Sodium (Lovenox Inj) 30 mg Q24H SC 05/19/16 21:00 06/18/16 20:59 05/20/16 21:24 30 MG Ipratropium [place] (Atrovent 0.02% 0.5MG/2.5ML Neb) 0.5 mg Q6RWA INH 05/20/16 15:00 06/19/16 14:59 05/21/16 07:04 0.5 MG Levalbuterol (Xopenex 1.25MG/ 0.5ML Neb) 1.25 mg Q6RWA INH 05/20/16 15:00 06/19/16 14:59 05/21/16 07:04 1.25 MG
[2016-05-21] MEDS ORDERED: ZTHM250 PO (10:48)
[2016-05-21] MEDS ORDERED: BENZ100C7 PO (10:48)
[2016-05-21] MEDS ORDERED: GUAI1TAB55 PO (10:48)
--- NOTE | 2016-05-21 10:50 | Discharge Instructions ---
Discharge Instructions Date of Service May 21, 2016. Admission Reason for Admission: Elevated Troponin, Sepsis Discharge Discharge Diagnosis / Problem: ACUTE BRONCHITIS Discharge Goals Goal(s): Diagnostic testing, Therapeutic intervention Activity Recommendations Activity Limitations: as noted below (NO HEAVY EXERTION UNTIL RE EVALUATED BY PRIMARY CARE PHYSICIAN) . Instructions / Follow-Up Instructions / Follow-Up PLEASE REVIEW YOUR NEW MEDICATION LIST AND FOLLOW INSTRUCTIONS CAREFULLY. PLENTY OF REST, ENSURE ADEQUATE DAILY FLUID INTAKE. CALL YOUR PRIMARY CARE PHYSICIAN OR RETURN TO ER IF WITH RECURRENCE OR WORSENING OF SYMPTOMS. PLEASE FOLLOW UP WITH PRIMARY CARE PHYSICIAN IN 1 WEEK. Current Hospital Diet Patient's current hospital diet: Regular Diet Discharge Diet Recommended Diet: Regular Diet Pending Studies Studies pending at discharge: no Medical Emergencies . Who to Call and When: Medical Emergencies: If at any time you feel your situation is an emergency, please call 911 immediately. . Non-Emergent Contact Non-Emergency issues call your: Primary Care Provider Call Non-Emergent contact if: you have a fever, you have any medication questions . . "Provider Documentation" section prepared by Moris Ya. VTE Core Measure Inpt VTE Proph given/why not?: Enoxaparin (Lovenox)SQ
--- NOTE | 2016-05-21 10:54 | Discharge Summary ---
Discharge Summary Date of Service May 21, 2016. Discharge Summary Admission Date: May 19, 2016 at 20:13 Discharge Date: May 21, 2016 Discharge Disposition: Home Principal Diagnosis: Possible Sepsis secondary to complicated bronchitis/atypical pneumonia Secondary Diagnoses/Problems: Please refer to hospital course for further details. Medication Reconciliation New Medications: Guaifenesin Ext Rel (Mucinex Ext Rel) 600 Mg Tab 600 MG PO Q12 for 5 Days, #10 TAB 2 Refills Azithromycin (Azithromycin) 250 Mg Tab 250 MG PO DAILY for 3 Days, #3 TAB 0 Refills Benzonatate (Benzonatate) 100 Mg Cap 100 MG PO Q8H PRN for Cough, #20 CAP 2 Refills Continued Medications: Chlorpheniramine-Phenylephrine (Rashida-Pierson Plus Cold) 1 Tab Tab 1 TAB PO PRN UD Ibuprofen Tab (Advil) 200 Mg Tab 200 MG PO prn ud PRN for Pain, TAB Admission Information HPI (per Admitting provider): Recent confinement in 2009 for choledocholithiasis under Surgery service. Patient underwent a cholecystectomy. A few days history of cough symptoms; started with a nasal congestion, sick contacts. No chest pain. Cough productive of yellow sputum, fever, chills and poor appetite. Denies aspiration. Denies fluid retention. Patient was noted to be wheezing at home. Physical Exam (per Admitting): VITAL SIGNS: Blood pressure was noted to be 160/70 later 120/70_ pulse rate 100, RR 20, temperature 38.9 sats 93 on room air. GENERAL: Noted to be slightly uncomfortable, looks younger for stated age, hard of hearing. SKIN: Normal color. HEENT: [place] palpebral conjunctivae. Dry mucosa. NECK: Supple CHEST: Decreased effort. no wheeze HEART: Regular rate and rhythm. ABDOMEN: Some distention, nontender. EXTREMITIES: No edema. no tenderness NEUROLOGIC: No gross focality except for mild hearing impairment. Hospital Course 1. Possible Sepsis secondary to complicated bronchitis/atypical pneumonia -- presented with fever of 38.1, tachycardia of 100 -- CXR: no pneumonia negative for Flu -- remained afebrile since admission clinically improved -- received 2 days of Azithromycin PO, Nebs -- discharge plan: continue Azithromycin 250mg daily x 3 days Mucinex Tessalon Pearls PRN 2. Mild Troponin elevation - no cardiac symptoms - Troponin remained stable around 0.08 CKMB and CK normal - EKG: no signs of acute ischemia - echo: normal wall motion -- Conclusions -- * The left ventricle is normal in size. * There is moderate concentric left ventricular hypertrophy. * Left ventricular systolic function is normal. * The left ventricular wall motion is normal. * Ejection Fraction = 65-70%. * Aortic valve sclerosis mild, without significant aortic valvular stenosis. * There is moderate mitral regurgitation. * There is mild to moderate tricuspid regurgitation. * Doppler findings do not suggest pulmonary hypertension. 3. Hypokalemia - resolved Disposition d/c home today ff up with PCP in 1 week Total time spent on discharge = 30 minutes This includes examination of the patient, discharge planning, medication reconciliation, and communication with other providers. Discharge Instructions Discharge Instructions Date of Service May 21, 2016. Admission Reason for Admission: Elevated Troponin, Sepsis Discharge Discharge Diagnosis / Problem: ACUTE BRONCHITIS Discharge Goals Goal(s): Diagnostic testing, Therapeutic intervention Activity Recommendations Activity Limitations: as noted below (NO HEAVY EXERTION UNTIL RE EVALUATED BY PRIMARY CARE PHYSICIAN) . Instructions / Follow-Up Instructions / Follow-Up PLEASE REVIEW YOUR NEW MEDICATION LIST AND FOLLOW INSTRUCTIONS CAREFULLY. PLENTY OF REST, ENSURE ADEQUATE DAILY FLUID INTAKE. CALL YOUR PRIMARY CARE PHYSICIAN OR RETURN TO ER IF WITH RECURRENCE OR WORSENING OF SYMPTOMS. PLEASE FOLLOW UP WITH PRIMARY CARE PHYSICIAN IN 1 WEEK. Current Hospital Diet Patient's current hospital diet: Regular Diet Discharge Diet Recommended Diet: Regular Diet Pending Studies Studies pending at discharge: no Medical Emergencies . Who to Call and When: Medical Emergencies: If at any time you feel your situation is an emergency, please call 911 immediately. . Non-Emergent Contact Non-Emergency issues call your: Primary Care Provider Call Non-Emergent contact if: you have a fever, you have any medication questions . . "Provider Documentation" section prepared by Moris Ya. VTE Core Measure Inpt VTE Proph given/why not?: Enoxaparin (Lovenox)SQ
== END 2016-05-21 11:12 | disposition home or self-care (01) | DRG 871 ==
LOC: ENRESERVDT → ENRESERVTM → C.EDB 18:10 → C.2E 20:13 → C.MS2W 05-20 13:28
PROVIDERS: ADMIT Internal Medicine; ATTEND Internal Medicine
DX: A41.9 Sepsis, unspecified organism (principal); J18.9 Pneumonia, unspecified organism; E87.6 Hypokalemia; J40 Bronchitis, not specified as acute or chronic; I08.1 Rheumatic disorders of both mitral and tricuspid valves

== ENCOUNTER 2016-06-12 06:09 | Emergency (ER) | payer OTHER ==
[~2016-06-12] VITALS: Ht 160 cm; Wt 76.8 kg
[~2016-06-12 06:09] MED LIST changes: +BENZ100C7 PO; -CALC500C3 PO; +CHLO1TAB47 PO; +GUAI1TAB55 PO; +ZTHM250 PO
[2016-06-12 06:14] VITALS: TEMP 36.7; Ht 160 cm; Wt 76.8 kg
[2016-06-12] MEDS ORDERED: TRAMADOL HCL 50 MG TAB PO STA (06:50)
--- NOTE | 2016-06-12 06:54 | DIAGNOSTIC IMAGING REPORT ---
RIGHT WRIST W/NAVICULAR MIN 3 VIEWS CLINICAL HISTORY: Right wrist pain COMPARISON: None. DISCUSSION: No acute fractures are visualized. There is ulnar minus variance. There are calcifications in the region of the triangular fibrocartilage. There are degenerative changes in the distal radial ulnar joint. IMPRESSION: 1. No acute fractures 2. Degenerative changes in the distal radial ulnar joint. Calcifications involving the triangular fibrocartilage. Electronically signed by: Félix Orellana M.D. 06/12/2016 6:52 AM Dictated Date/Time: 06/12/2016 6:51 AM
--- NOTE | 2016-06-12 06:58 | EMERGENCY ROOM VISIT NOTE ---
History Report prepared by Chaya: Lisset Melton Under the Supervision of: Lyle GarzaO. First contact with patient: 06:46 Chief Complaint: WRIST PAIN Stated Complaint: RT WRIST SWOLLEN,LUMP APPEARED,ARM PAIN TO SHOULDE History of Present Illness The patient is a 80 year old female who presents to the Emergency Room with complaints of persistent right wrist pain and swelling that began last evening around 2100. The patient reports digging up 2-3 weeds yesterday with a shovel without any pain.She also was quilting. Last night, she reached to adjust her thermostat and noticed the pain and swelling. The pain is worse with movement of her right wrist. She used ice without relief and took 3 baby aspirin around 2230 yesterday. She is right hand dominant. Past medical history includes arthritis. Denies fever or other complaints. No history of gout, ulcers, or kidney problems. Per patient's son, the patient was hospitalized and treated for bronchitis with Zithromax about 3 weeks ago and her doctor suspected a valve problem. She has not had an echocardiogram. Source of History: patient, family Onset: last night around 2100 Position: wrist (right) Timing: other (persistent) Modifying Factors (Worsening): movement Associated Symptoms: No fevers Review of Systems See HPI for pertinent positives & negatives. A total of 10 systems reviewed and were otherwise negative. Past Medical & Surgical Medical Problems: (1) Arthritis (2) Elevated troponin (3) Sepsis Surgical Problems: (1) S/P cholecystectomy Family History Cancer Social History Smoking Status: Never Smoker Alcohol Use: none Marital Status: Housing Status: lives alone Occupation Status: retired Current/Historical Medications Scheduled Tramadol Hcl (Ultram), 50 MG PO Q4H Scheduled PRN Ibuprofen Tab (Advil), 200 MG PO DIRECTED PRN for Pain Allergies Coded Allergies: Cefuroxime (Verified Allergy, Unknown, rash, 06/12/16) Amoxicillin (Verified Adverse Reaction, Unknown, nausea, 06/12/16) Physical Exam Vital Signs Date Time Temp Pulse Resp B/P Pulse Ox O2 Delivery O2 Flow Rate FiO2 06/12/16 07:15 71 18 152/79 96 06/12/16 06:14 36.7 69 21 153/73 98 Room Air Physical Exam GENERAL: The patient is a pleasant 80 year old female in mild distress. VITALS: Afebrile, hypertensive, normal pulse oximetry on room air. NECK: Supple, nontender, no lymphadenopathy or nuchal rigidity. THORAX : Symmetrical LUNGS : Clear without wheezing, rhonchi, or rales HEART: Regular rate and rhythm EXTREMITIES: With attention to the right wrist: Mild arthritic deformity, right wrist with swelling along the dorsum with mild erythema, increased pain with range of motion and palpation, otherwise range of motion intact, neurovascularly intact. Other extremities are atraumatic, nontender. NEUROLOGIC: Intact without focal deficits SKIN: No rash Medical Decision & Procedures ER Provider Diagnostic Interpretation: Radiology results as stated below per my review and radiologist interpretation: RIGHT WRIST W/NAVICULAR MIN 3 VIEWS CLINICAL HISTORY: Right wrist pain COMPARISON: None. DISCUSSION: No acute fractures are visualized. There is ulnar minus variance. There are calcifications in the region of the triangular fibrocartilage. There are degenerative changes in the distal radial ulnar joint. IMPRESSION: 1. No acute fractures 2. Degenerative changes in the distal radial ulnar joint. Calcifications involving the triangular fibrocartilage. Electronically signed by: Félix Orellana M.D. 06/12/2016 6:52 AM Dictated Date/Time: 06/12/2016 6:51 AM Medications Administered Medications (Trade) Dose Ordered Sig/Todd Route Start Time Stop Time Status Last Admin Dose Admin Ketorolac Tromethamine (Toradol Inj) 30 mg NOW ONCE IM 06/12/16 07:00 06/12/16 07:01 DC 06/12/16 07:08 30 MG Tramadol HCl (Ultram Tab) 50 mg NOW STAT PO 06/12/16 06:50 06/12/16 06:53 DC 06/12/16 07:07 50 MG ED Course 0648: The patient was evaluated in room B7. A complete history and physical examination was performed. On examination she had inflammatory changes noted to the right wrist associated with increased redness. Symptoms are suggestive of a inflammatory process most likely arthritis and mild tendinitis. She was medicated with 30 mg of IM Toradol and 1 Ultram. She was placed in a wrist splint. Ice pack was provided. Xrays showed degenerative changes. At this time she is being discharged home, in the company of her son, with instructions on activity and symptomatic care. She is to continue wearing the wrist lacer and use ice to the areas. She is to take Motrin 4 times a day or 2 Aleve twice a day, as well as, Ultram when necessary. She should have close outpatient follow-up with her family doctor for recheck. Return if increasing problems or concerns. The patient and her son felt comfortable with this treatment. 0650: Ordered Ultram Tab 50 mg PO, Toradol Inj 30 mg IM. 0710: Reevaluated the patient. She was doing well. Discussed results and discharge instructions; She verbalized understanding and agreement. The patient was discharged home. Medical Decision EMR, nurse's notes, diagnostic studies personally reviewed Differential diagnosis-see above The chart was completed utilizing [employer] Voice Recognition Software. Grammatical errors, random word insertions, pronoun errors, and incomplete sentences are an occasional consequence of this system due to software limitations, ambient noise, and hardware issues. Any formal questions or concerns about the content, text, or information contained within the body of this dictation should be directly addressed to the physician for clarification. Impression Primary Impression: Tendinitis of right wrist Additional Impression: Arthritis of right wrist Scribe Attestation The scribe's documentation has been prepared under my direction and personally reviewed by me in its entirety. I confirm that the note above accurately reflects all work, treatment, procedures, and medical decision making performed by me. Departure Information Dispostion Home / Self-Care Prescriptions Tramadol Hcl (ULTRAM) 50 Mg Tab 50 MG PO Q4H for Pain, #20 TAB PRN PAIN Prov: Laney CarlinD.OLonnie 06/12/16 Referrals Amor Carroll M.D. (PCP) Forms HOME CARE DOCUMENTATION FORM, IMPORTANT VISIT INFORMATION, WORK / SCHOOL INSTRUCTIONS Patient Instructions ED Sprain Hand, [facility] Additional Instructions Wear splint for the next 7-10 days Apply ice every 3-4 hours for the next 24-48 hours Keep elevated Take 3 ibuprofen 4 times a day or 2 Aleve twice a day, with food, to decrease pain and inflammation Avoid aspirin products while taking the ibuprofen or Aleve 1 Ultram every 4-6 hours as needed for severe pain Follow-up with your family doctor for recheck Return if worsening symptoms, problems or concerns Problem Qualifiers
[2016-06-12] MEDS ORDERED: KETOROLAC TROMETHAMINE 30 MG/ML VIAL IM ONE (07:00)
[2016-06-12] MEDS ORDERED: TRAM-453 PO (07:06)
[2016-06-12 07:15] VITALS: BP 152/79; PULSE 71; O2SAT 96
== END 2016-06-12 07:16 | disposition home or self-care (01) ==
LOC: C.EDB 06:10
DX: M19.031 Primary osteoarthritis, right wrist (principal); M65.9 Synovitis and tenosynovitis, unspecified; Z90.49 Acquired absence of other specified parts of digestive tract